=== PATIENT | female | born 1995 | race Caucasian/White ===

== ENCOUNTER 2020-12-10 22:14 | Emergency (ER) | payer MEDICAID ==
[~2020-12-10] VITALS: Ht 162.6 cm; Wt 59.0 kg
[2020-12-10 22:32] VITALS: BP 131/92
[2020-12-10 23:23] LABS: CLARITY URINE CLEAR (CLEAR); COLOR URINE DARK YELLOW (YELLOW); KETONES URINE NEGATIVE (NEGATIVE); LEUKOCYTE ESTERASE URINE 3+ (NEGATIVE); NITRITE URINE POSITIVE (NEGATIVE); OCCULT BLOOD URINE 2+ (NEGATIVE); PROTEIN URINE NEGATIVE (NEGATIVE); SPECIFIC GRAVITY URINE 1.004 (1.005-1.030); UROBILINOGEN URINE 0.2 E.U./dL (0.2-1.0)
== END 2020-12-11 00:15 | disposition left against medical advice (07) ==
LOC: ER 22:14
DX: Z53.21 Procedure and treatment not carried out due to patient leaving prior to being seen by health care provider (principal); R10.30 Lower abdominal pain, unspecified; R30.0 Dysuria
CPT/HCPCS: 81003; 81025; 87077; 87186